=== PATIENT | female | born 1995 | race Caucasian/White ===

== ENCOUNTER 2016-09-24 12:30 | Emergency (ER) | payer OTHER ==
[2016-09-24 15:14] VITALS: BP 113/62
== END 2016-09-24 15:14 | disposition home or self-care (01) ==
LOC: ED 12:30
DX: H92.01 Otalgia, right ear (principal)

== ENCOUNTER 2018-03-28 00:57 | Emergency (ER) | payer OTHER ==
[~2018-03-28] VITALS: Ht 149.9 cm; Wt 61.2 kg
[2018-03-28 01:05] VITALS: Ht 149.9 cm; Wt 61.2 kg
[2018-03-28 01:14] VITALS: BP 121/74
== END 2018-03-28 02:43 | disposition home or self-care (01) ==
LOC: ED 00:57
DX: N39.0 Urinary tract infection, site not specified (principal); R11.10 Vomiting, unspecified; R19.7 Diarrhea, unspecified
CPT/HCPCS: J1885; Q0162

== ENCOUNTER 2018-12-01 18:30 | Emergency (ER) | payer OTHER ==
[~2018-12-01] VITALS: Ht 149.9 cm; Wt 61.2 kg
[2018-12-01 18:32] VITALS: BP 136/76; Ht 149.9 cm; Wt 61.2 kg
== END 2018-12-01 19:51 | disposition home or self-care (01) ==
LOC: ED 18:30
DX: N39.0 Urinary tract infection, site not specified (principal)

== ENCOUNTER 2019-03-02 09:21 | Emergency (ER) | payer OTHER ==
[~2019-03-02] VITALS: Ht 124.5 cm; Wt 59.6 kg
[2019-03-02 09:56] VITALS: BP 115/76; Ht 124.5 cm; Wt 59.6 kg
== END 2019-03-02 11:09 | disposition home or self-care (01) ==
LOC: ED 09:21
DX: M77.9 Enthesopathy, unspecified (principal)

== ENCOUNTER 2019-04-06 20:17 | Emergency (ER) | payer OTHER ==
[~2019-04-06] VITALS: Ht 149.9 cm; Wt 60.3 kg
[2019-04-06 20:22] VITALS: Ht 149.9 cm; Wt 60.3 kg
[2019-04-06 21:18] VITALS: BP 127/79
== END 2019-04-06 21:18 | disposition home or self-care (01) ==
LOC: ED 20:17
DX: S16.1XXA Strain of muscle, fascia and tendon at neck level, initial encounter (principal); S39.012A Strain of muscle, fascia and tendon of lower back, initial encounter; M25.531 Pain in right wrist; V43.52XA Car driver injured in collision with other type car in traffic accident, initial encounter; Y93.I9 Activity, other involving external motion; Y92.488 Other paved roadways as the place of occurrence of the external cause; Y99.8 Other external cause status

== ENCOUNTER 2020-02-03 21:04 | Emergency (ER) | payer OTHER, SELFPAY ==
[~2020-02-03] VITALS: Ht 149.9 cm; Wt 64.9 kg
[2020-02-03 21:06] VITALS: Ht 149.9 cm; Wt 64.9 kg
[2020-02-03 22:13] VITALS: BP 128/92
== END 2020-02-03 22:13 | disposition home or self-care (01) ==
LOC: ED 21:04
DX: B34.9 Viral infection, unspecified (principal); Z20.828 Contact with and (suspected) exposure to other viral communicable diseases
CPT/HCPCS: U0003